=== PATIENT | female | born 1965 | race Caucasian/White ===

== ENCOUNTER 2025-03-05 11:48 | Inpatient (IN) | payer OTHER ==
[~2025-03-05] VITALS: Ht 154.9 cm; Wt 50.7 kg
--- NOTE | 2025-03-05 12:44 | ED.PDOC ---
History of Present Illness HPI Comments 60-year-old female presents to the ER with the family and with prior history of bipolar, anxiety, depression; surgical history of RLE Sx. Patient reports on having face numbness,"right eye worsening" and her, the spouse think it is due from the patient taking in much medication. Spouse reports the the PCP did cut the medications down to half, but symptoms still persist. Denies chills, fever, N/V/D, SOB, CP. No other associated symptoms, modifiers, recent injuries or sick contacts present at this time. Chief Complaint: General Weakness Time Seen by MD: 12:20 Primary Care Provider: AMANDA Zamudio Notes: Nurses Notes, Medications, Allergies Allergies: Coded Allergies: NO KNOWN ALLERGIES (Unverified , 10/08/24) Information Source: Patient, Spouse Mode of Arrival: Wheelchair Severity: Moderate Timing: Days Duration: Since onset, Days Prehospital treatment: None Past Medical History PAST MEDICAL HISTORY: Anxiety, Depression Past Medical History (Other): Bipolar disorder Surgical History (Other): RLE surgery [employer] History: No Pertinent [employer] History Family History Family History: Reviewed,noncontributory to illness, Unknown Social History Smoker: Non-Smoker Alcohol: Denies ETOH Use Drugs: Denies Drug Use Lives In: Home Constitutional: reports: others (Face numbness); denies: chills, diaphoresis, f atigue, fever, malaise, sweats, weakness EENTM: denies: blurred vision, double vision, ear bleeding, ear discharge, ear drainage, ear pain, ear ringing, eye pain, eye redness, hearing loss, mouth pain, mouth swelling, nasal discharge, nose bleeding, nose congestion, nose pain, photophobia, tearing, throat pain, throat swelling, voice changes, others Respiratory: denies: cough, hemoptysis, orthopnea, SOB at rest, shortness of breath, SOB with excertion, stridor, wheezing, others Cardiovascular: denies: chest pain, dizzy spells, diaphoresis, Dyspnea on exertion, edema, irregular heart beat, left arm pain, lightheadedness, palpitations, PND, syncope, others Gastrointestinal: denies: abdomen distended, abdominal pain, blood streaked bowels, constipated, diarrhea, dysphagia, difficulty swallowing, hematemesis, melena, nausea, poor appetite, poor fluid intake, rectal bleeding, rectal pain, vomiting, others Genitourinary: denies: abnormal vagina bleeding, burning, dyspareunia, dysuria, flank pain, frequency, hematuria, incontinence, pain, , vagina discharge, urgency, others Neurological: denies: dizziness, fainting, headache, left sided numbness, left sided weakness, numbness, paresthesia, pre-existing deficit, right sided numbness, right sided weakness, seizure, speech problems, tingling, tremors, weakness, others Musculoskeletal: denies: back pain, gout, joint pain, joint swelling, muscle pain, muscle stiffness, neck pain, others Integumetry: denies: bruises, change in color, change in hair/nails, dryness, laceration, lesions, lumps, rash, wounds, others Allergic/Immunocompromised: denies: Difficulty Healing, Frequent Infections, Hives, Itching, others Hematologic/Lymphatic: denies: anemia, blood clots, easy bleeding, easy bruising, swollen glands, others Endocrine: denies: excessive hunger, excessive sweating, excessive thirst, excessive urination, flushing, intolerance to cold, intolerance to heat, unexplained weight gain, unexplained weight loss, others Psychiatric: denies: anxiety, bipolar disorder, depression, hopeless, panic disorder, schizophrenia, sleepless, suicidal, others All Other Systems: Reviewed and Negative Physical Exam General Appearance: No Apparent Distress, Normal HEENT: Normal ENT Inspection, Pharynx Normal, TMs Normal Neck: Full Range of Motion, Non-Tender, Normal, Normal Inspection Respiratory: Chest Non-Tender, Lungs Clear, No Accessory Muscle Use, No Respiratory Distress, Normal Breath Sounds Cardiovascular: No Edema, No JVD, No Murmur, No Gallop, Normal Peripheral Pulses, Regular Rate/Rhythm Breast Exam: Deferred Gastrointestinal: No Organomegaly, Non Tender, No Pulsatile Mass, Normal Bowel Sounds, Soft Genitalia: Deferred Pelvic: Deferred Rectal: Deferred Extremities: No calf tenderness, Normal capillary refill, Normal inspection, Normal range of motion, Non-tender, No pedal edema Musculoskeletal : Apperance: Normal Neurologic: Alert, cloth picker II-XII nml as Tested, No Motor Deficits, Normal Affect, Normal Mood, No Sensory Deficits Cerebellar Function: Normal Reflexes: Normal Skin: Dry, Normal Color, Warm Lymphatic: No Adenopathy Was a procedure done? Was a procedure done?: No Differential Dx Considerations may include: ACS, CVA, medication reaction, electrolyte abnormality, infectious etiology X-Ray, Labs, Meds, VS Vital Signs Date Time Temp Pulse Resp B/P (MAP) Pulse Ox O2 Delivery O2 Flow Rate FiO2 03/05/25 11:55 98.0 109 20 113/77 (89) 96 98.0 Lab Test 03/05/25 15:00 03/05/25 13:28 03/05/25 11:55 Range/Units Troponin I High Sensitivity Pending 8 </=34 ng/L White Blood Count 5.5 4.4-10.8 10^3/uL Red Blood Count 4.42 4.0-5.20 10^6/uL Hemoglobin 14.2 12.2-16.2 g/dL Hematocrit 41.3 36.0-46.0 % Mean Corpuscular Volume 93.5 80.0-100.0 fL Mean Corpuscular Hemoglobin 32.2 H 28.0-32.0 pg Mean Corpuscular Hemoglobin Concent 34.5 32.0-36.0 g/dL Red Cell Distribution Width 13.1 11.8-14.3 % Platelet Count 288 140-450 10^3/uL Mean Platelet Volume 9.1 6.9-10.8 fL Neutrophils (%) (Auto) 77.9 37.0-80.0 % Lymphocytes (%) (Auto) 14.1 10.0-50.0 % Monocytes (%) (Auto) 6.5 0.0-12.0 % Eosinophils (%) (Auto) 1.1 0.0-7.0 % Basophils (%) (Auto) 0.4 0.0-2.0 % Neutrophils # (Auto) 4.3 1.6-8.6 10 ^3/uL Lymphocytes # (Auto) 0.8 0.4-5.4 10 ^3/uL Monocytes # (Auto) 0.4 0-1.3 10 ^3/uL Eosinophils # (Auto) 0.1 0-0.8 10 ^3/uL Basophils # (Auto) 0 0-0.2 10 ^3/uL Nucleated Red Blood Cells 0.0 % Sodium Level 142 136-145 mmol/L Potassium Level 4.1 3.5-5.1 mmol/L Chloride Level 105 98-107 mmol/L Carbon Dioxide Level 28 20-31 mmol/L Anion Gap 9 5-15 Blood Urea Nitrogen 16 9-23 mg/dL Creatinine 0.87 0.550-1.02 mg/dL Glomerular Filtration Rate Calc 76 >90 mL/min BUN/Creatinine Ratio 18.4 10.0-20.0 Serum Glucose 96 74-106 mg/dL Calcium Level 9.7 8.7-10.4 mg/dL POC Glucose 130 H 70-106 mg/dl [place] [id number] Ph: [phone] DIAGNOSTIC IMAGING Diagnostic Imaging Report : [id number] Signed PATIENT: GARRETT MORELAND ACCT: [id number] UNIT: [id number] : 1965 LOC: ER ROOM / BED: / AGE / SEX: 60 / F ADM STATUS: REG ER SERVICE 1316 ORDERING PHYSICIAN: JACEK SANTOS MD PROCEDURE(s): CXRP - CHEST PORTABLE REASON: generalized weakness ORDER NUMBER(s): [id number], ACCESSION NUMBER(s): [id number] CHEST RADIOGRAPH Indication: generalized weakness Technique: Single frontal view of the chest was obtained Comparison: None FINDINGS: The cardiac silhouette is unremarkable. The lungs demonstrate left basilar airspace opacities. The pulmonary vasculature is mildly prominent. Possible small left pleural effusion. There is no pneumothorax. IMPRESSION: 1. As above ATED BY: CORKY MULLINS MD DICTATED DATE/TIME: 03/05/25 135 SIGNED BY: CORKY MULLINS MD SIGNED DATE/TIME: 03/05/25 135 CC: Time of 1ST Reevaluation: 12:50 Reevaluation 1ST: Unchanged Patient Education/Counseling: Diagnosis, Treatment, Prognosis Family Education/Counseling: No Family Present Departure 1 Departure Time of Disposition: 15:40 (Patient with a worsening mental status and paresthesias. CT scan is benign, labs are benign. We will admit patient for further workup) Impression: Primary Impression: Paresthesias Additional Impression: Generalized weakness Disposition: 09 ADMITTED INPATIENT Admit to: Med Surg Condition: Serious Critical Care Note Critical Care Time?: Yes Critical care comment: Altered mental status Authorized and Performed by: Jacek Santos MD Total critical care time: Approximately 34 minutes Due to a high probability of clinically significant, life threatening deterioration, the patient required my highest level of preparedness to intervene emergently and I personally spent this critical care time directly and personally managing the patient. This critical care time included obtaining a history; examining the patient; pulse oximetry; ordering and review of studies; arranging urgent treatment with development of a management plan; evaluation of patient's response to treatment; frequent reassessment; and, discussions with other providers. This critical care time was performed to assess and manage the high probability of imminent, life-threatening deterioration that could result in multi-organ failure. It was exclusive of separately billable procedures and treating other patients and teaching time. Please see my other sections and the rest of the note for further information on patient assessment and treatment. Stability Stability form required: No I personally scribed for JACEK SANTOS MD ([email or web address]) on 03/05/25 at 12:44. Electronically submitted by Juve Rodriguez ([email or web address]). I personally scribed for JACEK SANTOS MD ([email or web address]) on 03/05/25 at 15:36. Electronically submitted by Juve Rodriguez ([employer]). JACEK SANTOS MD March 05, 2025 12:44
[2025-03-05 13:48] LABS: Basophils # (auto) 0 10 ^3/uL (0-0.2); Basophils % (auto) 0.4 % (0.0-2.0); Eosinophils # (auto) 0.1 10 ^3/uL (0-0.8); Eosinophils % (auto) 1.1 % (0.0-7.0); Hematocrit 41.3 % (36.0-46.0); Hemoglobin 14.2 g/dL (12.2-16.2); Lymphocytes # (auto) 0.8 10 ^3/uL (0.4-5.4); Lymphocytes % (auto) 14.1 % (10.0-50.0); Mean Corpuscular Hemoglobin 32.2 pg (28.0-32.0); Mean Corpuscular Hgb Conc. 34.5 g/dL (32.0-36.0); Mean Corpuscular Volume 93.5 fL (80.0-100.0); Monocytes # (auto) 0.4 10 ^3/uL (0-1.3); Monocytes % (auto) 6.5 % (0.0-12.0); Neutrophils # (auto) 4.3 10 ^3/uL (1.6-8.6); Neutrophils % (auto) 77.9 % (37.0-80.0); Platelet Count (auto) 288 10^3/uL (140-450); Red Blood Cells 4.42 10^6/uL (4.0-5.20); Red Cell Distribution Width 13.1 % (11.8-14.3); White Blood Cell 5.5 10^3/uL (4.4-10.8)
[2025-03-05 13:54] LABS: Chloride 105 mmol/L (98-107); Potassium 4.1 mmol/L (3.5-5.1); Sodium 142 mmol/L (136-145)
--- NOTE | 2025-03-05 13:54 | DVH ---
CHEST RADIOGRAPH Indication: generalized weakness Technique: Single frontal view of the chest was obtained Comparison: None FINDINGS: The cardiac silhouette is unremarkable. The lungs demonstrate left basilar airspace opacities. The pu lmonary vasculature is mildly prominent. Possible small left pleural effusion. There is no pneumothor ax. IMPRESSION: 1. As above
[2025-03-05 13:55] LABS: Anion Gap 9 (5-15); Calcium 9.7 mg/dL (8.7-10.4); Carbon Dioxide 28 mmol/L (20-31)
[2025-03-05 14:00] LABS: BUN/Creatinine Ratio 18.4 (10.0-20.0); Blood Urea Nitrogen 16 mg/dL (9-23); Glucose 96 mg/dL (74-106)
--- NOTE | 2025-03-05 15:38 | DVH ---
EXAM: HEAD WITHOUT CONTRAST HISTORY: facial parasthesias COMPARISON: None TECHNIQUE: Axial images of the head were obtained and reformatted in coronal and sagittal planes. All CT scans at this medical facility are performed using dose modulation techniques as appropriate t o a performed exam including the following: Automated exposure control was utilized; adjustment of th e MA and/or KV according to patient size; and use of iterative reconstruction technique. CT Dose: CTDI volume is 53.99 mGy. Dose-length product is 863.9 mGy*cm FINDINGS: There is no evidence of acute intracranial hemorrhage, mass, mass effect midline shift. There is no h ydrocephalus or extra-axial fluid collection. Eaton-white matter differentiation is maintained. There are sinonasal postsurgical changes. There are nodular opacities in the ethmoid sinuses and henri al cavity which may represent polyps. Mastoid air cells are clear. The calvarium is intact. IMPRESSION: 1. No acute intracranial process. HS:Y
[2025-03-05] MEDS ORDERED: DOCUSATE SOD 100 MG CAP PO PRN (22:45)
[2025-03-05] MEDS ORDERED: hydrOXYzine 25 MG TAB or CAP PO PRN (22:45)
[2025-03-05] MEDS ORDERED: HYDROcodone-ACET 5/325MG TAB PO PRN (22:45)
[2025-03-05] MEDS ORDERED: ACETAMINOPHEN 325 MG TAB PO PRN (22:45)
[2025-03-05] MEDS ORDERED: ONDANSETRON HCL 4 MG/2 ML VIAL IV PRN (22:45)
--- NOTE | 2025-03-05 23:41 | DVHHP2 ---
History of Present Illness Reason for Visit: Generalized weakness History of Present Illness The patient is a 60-year-old female with past medical history of depression, anxiety, and bipolar disorder who presented to [facility] with complaint of generalized weakness. Patient reports symptoms progressively get worse with facial numbness, worse on right eye. The spouse think it is due from the patient taking in much medication, reports that the PCP did cut the medications down to half, but symptoms still persist. Patient was seen and evaluated in the ED, laboratory data shows WBC 5.5, platelets 288, sodium 142, potassium 4.1, BUN 16, creatinine 0.87, glucose 96, troponin 9, blood pressure 114/70, heart rate 104, temperature 97.7 F, O2 saturation 96% room air. Head CT showed no acute intracranial process. Please see medication orders section in the computer. On my assessment, patient denies chest pain, no headache, no dizziness, no diaphoresis, no shortness of breath, no nausea, no vomiting, no fever, no chills. Patient was admitted for further evaluation and medical management. Past Medical History Anxiety, Depression, Bipolar disorder Past Surgical History RLE surgery Family History Reviewed, noncontributory to the management of this case. Past Social History The patient lives at home, denies smoking, alcohol or illicit drugs abuse. Review of Systems Constitutional: Yes: Weakness; No: Fever, Chills, Sweats, Malaise, Other Eyes: No: Pain, Vision change, Conjunctivae inflammation, Eyelid inflammation, Other, Redness ENT: Other (Facial numbness); No: Ear pain, Ear discharge, Nose pain, Nose discharge, Nose congestion, Mouth pain, Mouth swelling, Throat pain, Throat swelling Respiratory: No: Cough, Dry, Shortness of breath, SOB with excertion, Wheezing, Hemoptysis, Pleuritic Pain, Sputum, Wheezing, Other Cardiovascular: No: Chest Pain, Palpitations, Orthopnea, Paroxysmal Noc. Dyspnea, Edema, Lt Headedness, Other Gastrointestinal: No: Nausea, Vomiting, Abdominal Pain, Diarrhea, Constipation, Melena, Hematochezia, Other Genitourinary: No Dysuria, No Frequency, No Incontinence, No Hematuria, No Retention, No Other Musculoskeletal: No: other, neck pain, shoulder pain, arm pain, back pain, hand pain, leg pain, foot pain Skin: No: Rash, Lesions, Jaundice, Bruising, Other Neurological: No: Weakness, Numbness, Incoordination, Change in speech, Confusion, Seizures, Other Allergies: Coded Allergies: NO KNOWN ALLERGIES (Unverified , 10/08/24) Medications Current Medications Medications Dose Ordered Sig/Tej Route Start Time Stop Time Status Last Admin Dose Admin Trazodone HCl 150 mg HS PO 03/06/25 22:00 Famotidine 40 mg DAILY PO 03/06/25 10:00 UNV Olanzapine 10 mg DAILY PO 03/06/25 10:00 Hydroxyzine Pamoate 25 mg Q6HP PRN PO 03/05/25 22:45 Montelukast Sodium 10 mg HS PO 03/06/25 22:00 Sodium Chloride 10 ml Q8HR IV 03/06/25 06:00 Acetaminophen/ Hydrocodone Bitart 1 tab Q4HP PRN PO 03/05/25 22:45 Ondansetron HCl 4 mg Q4HP PRN IV 03/05/25 22:45 Docusate Sodium 100 mg BIDPRN PRN PO 03/05/25 22:45 Acetaminophen 650 mg Q6HP PRN PO 03/05/25 22:45 Exam Vital Signs Vital Signs Date Time Temp Pulse Resp B/P (MAP) Pulse Ox O2 Delivery O2 Flow Rate FiO2 03/05/25 22:54 98.2 101 16 107/73 (84) 98 98.2 03/05/25 16:18 Room Air General Appearance: Alert, Oriented X3, Cooperative, No acute distress HEENT: Atraumatic, PERRLA, EOMI, Mucous membr. moist/pink Respiratory: Clear to auscultation, Normal air movement Cardiovascular: Regular rate, Normal S1, Normal S2, No murmurs Abdominal: Normal bowel sounds, Soft, No tenderness, No hepatospenomegaly, No masses Extremities: No clubbing, No cyanosis, No edema, Normal pulses, No tenderness/swelling Skin: No rashes, No breakdown, No significant lesion Neuro: Normal speech, Normal tone, Sensation intact, Cranial nerves 3-12 NL, Reflexes 2+, Other (Weakness) Psych/Mental Status: Mental status NL, Mood NL Labs/Xrays Labs Test 03/05/25 16:47 03/05/25 13:28 03/05/25 11:55 Range/Units Lactic Acid Level 0.9 0.4-2.0 mmol/L Troponin I High Sensitivity 9 </=34 ng/L White Blood Count 5.5 4.4-10.8 10^3/uL Red Blood Count 4.42 4.0-5.20 10^6/uL Hemoglobin 14.2 12.2-16.2 g/dL Hematocrit 41.3 36.0-46.0 % Mean Corpuscular Volume 93.5 80.0-100.0 fL Mean Corpuscular Hemoglobin 32.2 H 28.0-32.0 pg Mean Corpuscular Hemoglobin Concent 34.5 32.0-36.0 g/dL Red Cell Distribution Width 13.1 11.8-14.3 % Platelet Count 288 140-450 10^3/uL Mean Platelet Volume 9.1 6.9-10.8 fL Neutrophils (%) (Auto) 77.9 37.0-80.0 % Lymphocytes (%) (Auto) 14.1 10.0-50.0 % Monocytes (%) (Auto) 6.5 0.0-12.0 % Eosinophils (%) (Auto) 1.1 0.0-7.0 % Basophils (%) (Auto) 0.4 0.0-2.0 % Neutrophils # (Auto) 4.3 1.6-8.6 10 ^3/uL Lymphocytes # (Auto) 0.8 0.4-5.4 10 ^3/uL Monocytes # (Auto) 0.4 0-1.3 10 ^3/uL Eosinophils # (Auto) 0.1 0-0.8 10 ^3/uL Basophils # (Auto) 0 0-0.2 10 ^3/uL Nucleated Red Blood Cells 0.0 % Sodium Level 142 136-145 mmol/L Potassium Level 4.1 3.5-5.1 mmol/L Chloride Level 105 98-107 mmol/L Carbon Dioxide Level 28 20-31 mmol/L Anion Gap 9 5-15 Blood Urea Nitrogen 16 9-23 mg/dL Creatinine 0.87 0.550-1.02 mg/dL Glomerular Filtration Rate Calc 76 >90 mL/min BUN/Creatinine Ratio 18.4 10.0-20.0 Serum Glucose 96 74-106 mg/dL Calcium Level 9.7 8.7-10.4 mg/dL POC Glucose 130 H 70-106 mg/dl PATIENT: GARRETT MORELAND ACCT: [id number] UNIT: [id number] : 1965 LOC: ER ROOM / BED: / AGE / SEX: 60 / F ADM STATUS: REG ER SERVICE 1316 ORDERING PHYSICIAN: JACEK SANTOS MD PROCEDURE(s): CXRP - CHEST PORTABLE REASON: generalized weakness ORDER NUMBER(s): [id number], ACCESSION NUMBER(s): [id number] CHEST RADIOGRAPH Indication: generalized weakness Technique: Single frontal view of the chest was obtained Comparison: None FINDINGS: The cardiac silhouette is unremarkable. The lungs demonstrate left basilar airspace opacities. The pulmonary vasculature is mildly prominent. Possible small left pleural effusion. There is no pneumothorax. IMPRESSION: 1. As above ORDERING PHYSICIAN: JACEK SANTOS MD PROCEDURE(s): HWOCT - HEAD WITHOUT CONTRAST REASON: facial parasthesias ORDER NUMBER(s): [id number], ACCESSION NUMBER(s): [id number] EXAM: HEAD WITHOUT CONTRAST HISTORY: facial parasthesias COMPARISON: None TECHNIQUE: Axial images of the head were obtained and reformatted in coronal and sagittal planes. All CT scans at this medical facility are performed using dose modulation techniques as appropriate to a performed exam including the following: Automated exposure control was utilized; adjustment of the MA and/or KV according to patient size; and use of iterative reconstruction technique. CT Dose: CTDI volume is 53.99 mGy. Dose-length product is 863.9 mGy*cm FINDINGS: There is no evidence of acute intracranial hemorrhage, mass, mass effect midline shift. There is no hydrocephalus or extra-axial fluid collection. Eaton-white matter differentiation is maintained. There are sinonasal postsurgical changes. There are nodular opacities in the ethmoid sinuses and nasal cavity which may represent polyps. Mastoid air cells are clear. The calvarium is intact. IMPRESSION: 1. No acute intracranial process. Assessment/Plan Assessment/Plan Generalized weakness Facial numbness Anxiety disorder Plan 1. Admit to telemetry unit 2. Breathing treatment 3. Pain control management 4. Management of fluids and electrolytes 5. Consultation for Psychiatry/hospitalist 6. Diagnostic tests head CT 7. DVT prophylaxis-on SCDs 8. Repeat labs CBC, CMP in a.m. 9. Continue with current medical management 10. Treatment plan discussed with patient and RN. Patient verbalized understanding. Plan discussed with: Patient, Other (RN) My Orders Orders - IVÁN GLEASON DNP Procedure Category Date Status Time Trazodone Hcl PHA 03/06/25 In Process (Desyrel) 22:00 Famotidine Tablet PHA 03/06/25 Pending (Pepcid Tablet) 10:00 Olanzapine Tablet PHA 03/06/25 In Process (Zyprexa Tablet) 10:00 Hydroxyzine Oral PHA 03/05/25 In Process (Vistaril Oral) 22:45 Montelukast Tablet PHA 03/06/25 In Process (Singulair Tablet) 22:00 Allergies VERNON 03/05/25 In Process 22:35 Code Status CODE 03/05/25 Transmitted 22:35 Sodium Chloride Lock PHA 03/06/25 In Process (Saline Lock Ns) 06:00 Oxygen Per Hour RT 03/05/25 Transmitted 22:35 Hydrocodone-Acet PHA 03/05/25 In Process 5/325mg Tab ([place] 22:45 Ondansetron Hcl PHA 03/05/25 In Process (Zofran) 22:45 Docusate Sodium PHA 03/05/25 In Process Capsule (Colace 22:45 Complete Blood Count LAB 03/06/25 Verified 04:00 Comprehensive LAB 03/06/25 Verified Metabolic Panel 04:00 Cardiac DIET 03/06/25 Transmitted Diet-2gna,Lofat,Lochol Breakfast Condition: Serious VERNON 03/05/25 In Process 22:35 Acetaminophen Tablet PHA 03/05/25 In Process (Tylenol Tablet) 22:45 Bedrest With Bathroom VERNON 03/05/25 In Process Privileg 22:35 Sequential VERNON 03/05/25 In Process Compression Device *Tele Psych Consult CONS 03/05/25 Transmitted 22:52 Admit ADMIT 03/05/25 Verified 23:40 Nitroglycerin PHA 03/05/25 Verified Sublingual (Ntrostat 23:45 Problem List: (1) Generalized weakness (2) Facial numbness (3) Anxiety disorder Date of Service: March 05, 2025 Billing Provider: IVÁN GLEASON DNP Common Visit Codes: 56974-[id number] INP/OBS CARE (HIGH) IVÁN GLEASON DNP March 05, 2025 23:41
[2025-03-05] MEDS ORDERED: MORPHINE SULFATE INJ 2 MG/ml SYRG IV PRN (23:45)
[2025-03-05] MEDS ORDERED: NITROGLYCERIN 0.4 MG SL TAB SL PRN (23:45)
[2025-03-06] VITALS (10 sets, daily range): BP systolic 103–132; BP diastolic 57–76; PULSE 81–115; RESP 13–22; TEMP 97.4–97.9; O2SAT 94–98
[2025-03-06 03:26] LABS: Urine Bacteria MANY /hpf (None Seen); Urine Blood Negative /uL (Negative); Urine Clarity Ex.Turbid (Clear); Urine Color Brown (Yellow); Urine Mucus MODERATE (None Seen); Urine Protein, UAD TRACE (Negative); Urine Specific Gravity 1.031 (1.001-1.035); Urine Squamous Epithelial Cell None Seen /hpf (<5); Urine Urobilinogen 2 mg/dL (Negative); Urine WBC 29 /HPF (0-5)
[2025-03-06] MEDS ORDERED: TRAZ-184 PO (03:44)
[2025-03-06] MEDS ORDERED: FENO160T PO (03:44)
[2025-03-06] MEDS ORDERED: OLAN1TAB26 PO (03:44)
[2025-03-06] MEDS ORDERED: MONT-8 PO (03:44)
--- NOTE | 2025-03-06 05:14 | ECG ---
[facility] Test Date: 2025-03-06 Test Time: 01:28:40 Pat Name: GARRETT MORELAND Department: ED Room: 0298T A Gender: F Global Account Manager: АННА : 1965 Requested By: IVÁN GLEASON Order Number: [id number] Reading MD: Kobe Goldman Measurements Intervals [place] Rate: 95 P: 85 WI: 118 QRS: 76 QRSD: 84 T: 57 QT: 373 QTc: 469 Interpretive Statements Sinus rhythm Borderline short WI interval Consider left atrial enlargement Nonspecific T abnormalities, lateral leads Baseline wander in lead(s) I,II,aVR,aVL,aVF Electronically Signed On 03-07-2025 21:01:50 PDT by Kobe Goldman Please click the below link to view image of tracing.
[2025-03-06] MEDS: SODIUM CHLOR 0.9% PF (SALINE LOCK) 10ML VIAL/SYR IV SCH (06:22)
[2025-03-06 07:15] LABS: Basophils # (auto) 0 10 ^3/uL (0-0.2); Basophils % (auto) 0.6 % (0.0-2.0); Eosinophils # (auto) 0.2 10 ^3/uL (0-0.8); Eosinophils % (auto) 3.1 % (0.0-7.0); Hematocrit 39.2 % (36.0-46.0); Hemoglobin 13.6 g/dL (12.2-16.2); Lymphocytes # (auto) 0.8 10 ^3/uL (0.4-5.4); Mean Corpuscular Hemoglobin 31.8 pg (28.0-32.0); Mean Corpuscular Hgb Conc. 34.6 g/dL (32.0-36.0); Mean Corpuscular Volume 91.8 fL (80.0-100.0); Monocytes # (auto) 0.3 10 ^3/uL (0-1.3); Monocytes % (auto) 6.1 % (0.0-12.0); Neutrophils # (auto) 4.2 10 ^3/uL (1.6-8.6); Neutrophils % (auto) 75.2 % (37.0-80.0); Platelet Count (auto) 266 10^3/uL (140-450); Red Blood Cells 4.27 10^6/uL (4.0-5.20); Red Cell Distribution Width 13.4 % (11.8-14.3); White Blood Cell 5.6 10^3/uL (4.4-10.8)
[2025-03-06 07:24] LABS: Alanine Aminotransferase 40 U/L (7-40); Albumin 4.5 g/dL (3.2-4.8); Anion Gap 13 (5-15); Aspartate Aminotransferase 31 U/L (13-40); BUN/Creatinine Ratio 22.1 (10.0-20.0); Blood Urea Nitrogen 15 mg/dL (9-23); Calcium 9.8 mg/dL (8.7-10.4); Carbon Dioxide 24 mmol/L (20-31); Chloride 105 mmol/L (98-107); Glucose 84 mg/dL (74-106); Sodium 142 mmol/L (136-145)
[2025-03-06 07:25] LABS: Total Protein 6.8 g/dL (5.7-8.2)
[2025-03-06 07:27] LABS: Bilirubin, Total 0.6 mg/dL (0.2-1.0)
[2025-03-06 07:33] LABS: Potassium 3.4 mmol/L (3.5-5.1)
[2025-03-06 07:34] LABS: Alkaline Phosphatase 43 U/L (46-116)
[2025-03-06] MEDS: OLANZapine 5 MG TAB PO SCH (09:45)
[2025-03-06] MEDS: FAMOTIDINE 20 MG TAB PO SCH (09:48)
--- NOTE | 2025-03-06 17:24 | DVHPN2 ---
Subjective no weakness Changes from previous H/P or p: No Changes Eyes: No Pain, No Vision change, No Conjunctivae inflammation, No Eyelid inflammation, No Other, No Redness ENT: No Ear pain, No Ear discharge, No Nose pain, No Nose discharge, No Nose congestion, No Mouth pain, No Mouth swelling, No Throat pain, No Throat swelling; Other (Facial numbness) Cardiovascular: No Chest Pain, No Palpitations, No Orthopnea, No Paroxysmal Noc. Dyspnea, No Edema, No Lt Headedness, No Other Respiratory: No Cough, No Dry, No Shortness of breath, No SOB with excertion, No Wheezing, No Hemoptysis, No Pleuritic Pain, No Sputum, No Other Gastrointestinal: No Nausea, No Vomiting, No Abdominal Pain, No Diarrhea, No Constipation, No Melena, No Hematochezia, No Other Genitourinary: No Dysuria, No Frequency, No Incontinence, No Hematuria, No Retention, No Other Musculoskeletal: No other, No neck pain, No shoulder pain, No arm pain, No back pain, No hand pain, No leg pain, No foot pain Skin: No Rash, No Lesions, No Jaundice, No Bruising, No Other Objective Vitals Vital Signs Date Time Temp Pulse Resp B/P (MAP) Pulse Ox O2 Delivery O2 Flow Rate FiO2 03/06/25 16:47 97.6 81 17 104/69 (81) 98 97.6 03/06/25 08:00 Room Air* 0 21 Intake/Output Intake and Output 03/06/25 07:00 Intake Total 150 ml Balance 150 ml Intake Oral 150 ml General Appearance: Alert, Oriented X3 HEENT: Atraumatic, PERRLA Lungs: Clear to auscultation Abdomen: Normal bowel sounds, Soft Medications Current Medications Medications Dose Ordered Sig/Tej Route Start Time Stop Time Status Last Admin Dose Admin Trazodone HCl 150 mg HS PO 03/06/25 22:00 Famotidine 40 mg DAILY PO 03/06/25 10:00 Olanzapine 10 mg DAILY PO 03/06/25 10:00 03/06/25 09:45 10 MG Hydroxyzine Pamoate 25 mg Q6HP PRN PO 03/05/25 22:45 Montelukast Sodium 10 mg HS PO 03/06/25 22:00 Sodium Chloride 10 ml Q8HR IV 03/06/25 06:00 03/06/25 14:49 10 ML Acetaminophen/ Hydrocodone Bitart 1 tab Q4HP PRN PO 03/05/25 22:45 Ondansetron HCl 4 mg Q4HP PRN IV 03/05/25 22:45 Docusate Sodium 100 mg BIDPRN PRN PO 03/05/25 22:45 Acetaminophen 650 mg Q6HP PRN PO 03/05/25 22:45 Nitroglycerin 0.4 mg Q5MINP PRN SL 03/05/25 23:45 Morphine Sulfate 2 mg Q30M PRN IV 03/05/25 23:45 Laboratory Results Laboratory Tests 03/06/25 06:32 Chemistry Test 03/06/25 06:32 Albumin 4.5 g/dL (3.2-4.8) Calcium Level 9.8 mg/dL (8.7-10.4) Total Protein 6.8 g/dL (5.7-8.2) LFT Test 03/06/25 06:32 Alanine Aminotransferase (ALT) 40 U/L (7-40) Alkaline Phosphatase 43 U/L (46-116) L Aspartate Amino Transferase (AST) 31 U/L (13-40) Total Bilirubin 0.6 mg/dL (0.2-1.0) Urinalysis Test 03/06/25 02:00 Urine Color Brown (Yellow) H Urine Clarity Ex.turbid (Clear) Urine pH 5.0 (5.0-9.0) Urine Specific [place] 1.031 (1.001-1.035) Urine Protein Trace (Negative) H Urine Ketones 1+ (Negative) H Urine Blood Negative /uL (Negative) Urine Nitrite Negative (Negative) Urine Bilirubin Negative (Negative) Urine Urobilinogen 2 mg/dL (Negative) H Urine Leukocyte Esterase 3+ /uL (Negative) Urine RBC None seen /hpf (0 - 4) Urine Microscopic WBC 29 /HPF (0-5) H Urine Squamous Epithelial Cells None seen /hpf (<5) Urine Bacteria Many /hpf (None Seen) H Urine Mucus Moderate (None Seen) Urine Glucose Normal mg/dL (Normal) Assessment/Plan Assessment/Plan Generalized weakness Facial numbness Anxiety disorder Bipolar with depression CT head wnl Her symptoms possible related to her psychiatry meds since they started when her meds were changed consult tele psychiatry Plan discussed with: Patient My Orders Orders - BARBARA ANGEL MD Procedure Category Date Status Time Soc Telemed Psych CONS 03/06/25 Transmitted Consult 13:30 Date of Service: March 06, 2025 Billing Provider: BARBARA ANGEL MD Common Visit Codes: [id number] INP/OBS CARE(HIGH) BARBARA ANGEL MD March 06, 2025 17:24
[2025-03-06] MEDS: MONTELUKAST SODIUM 10 MG TAB PO SCH (21:41)
[2025-03-06] MEDS: traZODone HCL 50 MG TAB PO SCH (21:42)
[2025-03-07 01:00] VITALS: BP 123/72; PULSE 93; RESP 17; TEMP 97.6; O2SAT 97
[2025-03-07 05:00] VITALS: BP 105/68; PULSE 89; RESP 19; TEMP 97.6; O2SAT 96
[2025-03-07 08:00] VITALS: PULSE 73; PULSE 88; RESP 19
[2025-03-07 08:24] VITALS: BP 125/76; PULSE 94; RESP 17; TEMP 98; O2SAT 98
[2025-03-07 12:53] VITALS: BP 127/78; PULSE 92; RESP 17; TEMP 98.1; O2SAT 99
--- NOTE | 2025-03-07 13:10 | DVHDS2 ---
Discharge Summary Date of Admission March 05, 2025 at 23:40 Date of Discharge: March 07, 2025 Labs/Diagnostic Data: Laboratory Results Test 03/06/25 06:32 03/06/25 02:00 03/05/25 16:47 03/05/25 11:55 White Blood Count 5.6 10^3/uL (4.4-10.8) Red Blood Count 4.27 10^6/uL (4.0-5.20) Hemoglobin 13.6 g/dL (12.2-16.2) Hematocrit 39.2 % (36.0-46.0) Mean Corpuscular Volume 91.8 fL (80.0-100.0) Mean Corpuscular Hemoglobin 31.8 pg (28.0-32.0) Mean Corpuscular Hemoglobin Concent 34.6 g/dL (32.0-36.0) Red Cell Distribution Width 13.4 % (11.8-14.3) Platelet Count 266 10^3/uL (140-450) Mean Platelet Volume 8.9 fL (6.9-10.8) Neutrophils (%) (Auto) 75.2 % (37.0-80.0) Lymphocytes (%) (Auto) 15.0 % (10.0-50.0) Monocytes (%) (Auto) 6.1 % (0.0-12.0) Eosinophils (%) (Auto) 3.1 % (0.0-7.0) Basophils (%) (Auto) 0.6 % (0.0-2.0) Neutrophils # (Auto) 4.2 10 ^3/uL (1.6-8.6) Lymphocytes # (Auto) 0.8 10 ^3/uL (0.4-5.4) Monocytes # (Auto) 0.3 10 ^3/uL (0-1.3) Eosinophils # (Auto) 0.2 10 ^3/uL (0-0.8) Basophils # (Auto) 0 10 ^3/uL (0-0.2) Nucleated Red Blood Cells 0.0 % Sodium Level 142 mmol/L (136-145) Potassium Level 3.4 mmol/L (3.5-5.1) Chloride Level 105 mmol/L (98-107) Carbon Dioxide Level 24 mmol/L (20-31) Anion Gap 13 (5-15) Blood Urea Nitrogen 15 mg/dL (9-23) Creatinine 0.68 mg/dL (0.550-1.02) Glomerular Filtration Rate Calc 100 mL/min (>90) BUN/Creatinine Ratio 22.1 (10.0-20.0) Serum Glucose 84 mg/dL (74-106) Calcium Level 9.8 mg/dL (8.7-10.4) Total Bilirubin 0.6 mg/dL (0.2-1.0) Aspartate Amino Transferase (AST) 31 U/L (13-40) Alanine Aminotransferase (ALT) 40 U/L (7-40) Alkaline Phosphatase 43 U/L (46-116) Total Protein 6.8 g/dL (5.7-8.2) Albumin 4.5 g/dL (3.2-4.8) Urine Color Brown (Yellow) Urine Clarity Ex.turbid (Clear) Urine pH 5.0 (5.0-9.0) Urine Specific [place] 1.031 (1.001-1.035) Urine Protein Trace (Negative) Urine Ketones 1+ (Negative) Urine Blood Negative /uL (Negative) Urine Nitrite Negative (Negative) Urine Bilirubin Negative (Negative) Urine Urobilinogen 2 mg/dL (Negative) Urine Leukocyte Esterase 3+ /uL (Negative) Urine RBC None seen /hpf (0 - 4) Urine Microscopic WBC 29 /HPF (0-5) Urine Squamous Epithelial Cells None seen /hpf (<5) Urine Bacteria Many /hpf (None Seen) Urine Mucus Moderate (None Seen) Urine Glucose Normal mg/dL (Normal) Lactic Acid Level 0.9 mmol/L (0.4-2.0) Troponin I High Sensitivity 9 ng/L (</=34) POC Glucose 130 mg/dl (70-106) Other Laboratory Tests 03/06/25 06:32 Brief Hx & Hospital Course: The patient is a 60-year-old female with past medical history of depression, anxiety, and bipolar disorder who presented to [facility] with complaint of generalized weakness. Patient reports symptoms progressively get worse with facial numbness, worse on right eye. The spouse think it is due from the patient taking in much medication, reports that the PCP did cut the medications down to half, but symptoms still persist. Patient was seen and evaluated in the ED, laboratory data shows WBC 5.5, platelets 288, sodium 142, potassium 4.1, BUN 16, creatinine 0.87, glucose 96, troponin 9, blood pressure 114/70, heart rate 104, temperature 97.7 F, O2 saturation 96% room air. Head CT showed no acute intracranial process. Please see medication orders section in the computer. On my assessment, patient denies chest pain, no headache, no dizziness, no diaphoresis, no shortness of breath, no nausea, no vomiting, no fever, no chills. Patient was admitted for further evaluation and medical management. Symptoms resolved most likely related to side effects of antipsychotics and bipolar Condition at Discharge: Good Final Diagnosis/Problems List TIA/stroke ruled out Discharge Disposition: Home Discharge Instruct/Medications Diet: Regular Activity: No Restrictions, As Tolerated Follow Up/Referral: PCP in 7 days Medications: same home medications Discharge Statement: "Patient was advised to return to the ER or call 911 if any headaches, dizziness, shortness of breath, chest pain, abdominal pain, bleeding, fevers, or worsening of medical condition. Patient was counseled about treatment plan, medications, possible side effects, patientverbalized understanding. All questions were answered to the best of my ability. This discharge took greater then 30 minutes in planning, reviewing documentation, counseling the patient, and discussing with other team members." ASSESSMENT ASSESSMENT Assessment TIA/stroke ruled out Date of Service: March 07, 2025 Billing Provider: BARBARA ANGEL MD Common Visit Codes: [id number] DISCH DAY >30min BARBARA ANGEL MD March 07, 2025 13:10
== END 2025-03-07 14:50 | disposition home or self-care (01) | DRG 74 ==
LOC: ER 11:50 → OVERFLOW 23:40 → TELE-WESTW 23:41
PROVIDERS: ADMIT Hospitalist; ATTEND Hospitalist
DX: G90.89 Other disorders of autonomic nervous system (principal); J90 Pleural effusion, not elsewhere classified; F31.9 Bipolar disorder, unspecified; F41.9 Anxiety disorder, unspecified; T43.595A Adverse effect of other antipsychotics and neuroleptics, initial encounter; Z79.899 Other long term (current) drug therapy; Y92.89 Other specified places as the place of occurrence of the external cause
CPT/HCPCS: 36415; 70450; 71045; 80048; 80053; 81001; 82962; 83605; 84484; 85025; 87040; 93005; 99291; G0378